=== PATIENT | male | born 1970 | race Caucasian/White ===

== ENCOUNTER → 2017-07-12 | Outpatient (CLI) | payer OTHER ==
[~2017-07-12] MED LIST: HYDROCODON-ACE1 EAC7 PO; NAPROSYN500 MG PO
[2017-07-12 08:08] LABS: HEMOGLOBIN 16.1 gm/dL (14.0-18.0); MPV 7.9 fl. (7.2-11.1); RDW-CV 12.9 % (10.5-14.5)
[2017-07-12 08:10] LABS: ABSOLUTE EOSINOPHILS 0.1 thou/uL (0.0-0.7); ABSOLUTE LYMPHOCYTES 1.4 thou/uL (0.8-5.3); ABSOLUTE MONOCYTES 0.4 thou/uL (0.0-1.2); ABSOLUTE NEUTROPHILS 1.9 thou/uL (1.6-8.1); EOSINOPHILS 2.5 %; HEMATOCRIT 45.3 % (42.0-52.0); LYMPHOCYTES 35.3 %; MCH 33.8 pg (26.0-34.0); MCHC 35.6 g/dL (28.0-37.0); MCV 94.7 fL (80.0-100.0); MONOCYTES 10.9 %; NUCLEATED RBCS 0 /100WBC; PLATELET COUNT* 227 thou/uL (150-400); POLYS 50.3 %; RBC 4.78 mil/uL (4.50-6.00); WBC 3.9 thou/uL (4.0-11.0)
[2017-07-12 08:17] LABS: ALBUMIN 3.9 g/dL (3.4-5.0); ALKALINE PHOSPHATASE 82 U/L (46-116); ANION GAP 5 mmol/L (7-16); BUN 17 mg/dL (7-18); CALCIUM 9.1 mg/dL (8.5-10.1); CHLORIDE 105 mmol/L (98-107); CHOLESTEROL 213 mg/dL (<200); CO2 32 mmol/L (21-32); CREATININE 1.1 mg/dL (0.6-1.3); GLUCOSE 116 mg/dL (70-99); HDL CHOLESTEROL 42 mg/dL (>40); LDL CHOLESTEROL 131 mg/dL (<100); POTASSIUM 4.5 mmol/L (3.5-5.1); SERUM ASSESSMENT Slight Lipemia; SGOT 64 U/L (15-37); SGPT 129 U/L (30-65); SODIUM 142 mmol/L (136-145); TC:HDL 5.1 Ratio (Not establshd); TOTAL BILIRUBIN 0.6 mg/dL (<0.1-1.0); TOTAL PROTEIN 7.1 g/dL (6.4-8.2); TRIGLYCERIDE 204 mg/dL (<150); VLDL 41 mg/dL (<40)
[2017-07-13 08:08] LABS: GLYCOHEMOGLOBIN (HGB A1C) 4.9 % (4.8-5.6)
== END ==
LOC: M.LAB 07:48
PROVIDERS: Internal Medicine
DX: I10 Essential (primary) hypertension (principal)